=== PATIENT | female | born 1990 | race Caucasian/White ===

== ENCOUNTER 2018-08-04 16:22 | Emergency (ER) | payer SELFPAY ==
[~2018-08-04] VITALS: Ht 157.5 cm; Wt 50.0 kg
[2018-08-04 16:28] VITALS: BP 105/73
== END 2018-08-04 20:00 | disposition left against medical advice (07) ==
LOC: EMS 16:23
DX: R51 Headache (principal); Z53.21 Procedure and treatment not carried out due to patient leaving prior to being seen by health care provider

== ENCOUNTER 2020-01-10 08:44 | Emergency (ER) | payer OTHER ==
[~2020-01-10] VITALS: Ht 152.4 cm; Wt 47.7 kg
[2020-01-10] MEDS ORDERED: LORA-999 PO (08:50)
[2020-01-10 09:19] LABS: BASOPHILS % (AUTO) 0.4 % (0.0-2.0); EOSINOPHILS % (AUTO) 2.8 % (1.0-6.0); HEMATOCRIT 42.3 % (36-46); HEMOGLOBIN 14.4 g/dL (12.0-16.0); LYMPHOCYTES # (AUTO) 1.6 K/uL (1.0-4.8); LYMPHOCYTES % (AUTO) 18.5 % (22.0-44.0); MEAN CORPUSCULAR HEMOGLOBIN 30.5 pg (26.0-34.0); MEAN CORPUSCULAR VOLUME 90 fL (80-100); MONOCYTES # (AUTO) 0.5 K/uL (0.1-1.0); MONOCYTES % (AUTO) 6.3 % (2.0-9.0); NEUTROPHILS # (AUTO) 6.1 K/uL (1.8-7.7); PLATELET COUNT (AUTO) 193 K/uL (150-450); RED BLOOD CELL COUNT(AUTO) 4.72 MIL/uL (4.00-5.20); RED CELL DISTRIBUTION WIDTH 13.9 % (11.5-14.5)
[2020-01-10 09:27] LABS: ANION GAP 16 mmol/L (8-16); CALCIUM, TOTAL 9.3 mg/dL (8.8-10.5); CARBON DIOXIDE 20 mmol/L (22-29); CHLORIDE 97 mmol/L (98-107); CREATININE 0.83 mg/dL (0.60-1.30); GLOMERULAR FILTR. RATE CALC > 60 mL/min (>60); GLUCOSE,RANDOM 72 mg/dL (70-110); POTASSIUM 3.5 mmol/L (3.5-5.1); SODIUM SERUM 133 mmol/L (136-145); UREA NITROGEN, BLOOD 18 mg/dL (7-18)
[2020-01-10] MEDS ORDERED: LORazepam 1 MG TABLET PO ONE (09:30)
[2020-01-10 10:16] VITALS: BP 125/70
== END 2020-01-10 10:19 | disposition home or self-care (01) ==
LOC: EMS 08:46
DX: F41.9 Anxiety disorder, unspecified (principal)
CPT/HCPCS: 36415; 80048; 85025; 99283; G0480

== ENCOUNTER 2020-03-25 17:54 | Emergency (ER) | payer OTHER ==
[~2020-03-25] VITALS: Ht 157.5 cm; Wt 50.5 kg
[~2020-03-25 17:54] MED LIST: LORA-999 PO
[2020-03-25] MEDS ORDERED: QUET100T PO (18:06)
[2020-03-25 18:11] VITALS: BP 124/75
== END 2020-03-25 18:17 | disposition left against medical advice (07) ==
LOC: EMS 17:55
DX: M54.5 Low back pain (principal); Z53.21 Procedure and treatment not carried out due to patient leaving prior to being seen by health care provider

== ENCOUNTER 2020-05-03 20:43 | Emergency (ER) | payer OTHER ==
[~2020-05-03] VITALS: Ht 160 cm; Wt 52.3 kg
[~2020-05-03 20:43] MED LIST changes: +QUET100T PO
[2020-05-03] MEDS ORDERED: [UNRECOGNIZED DRUG - OTHER] PO (20:51)
[2020-05-03 21:52] LABS: BASOPHILS % (AUTO) 0.2 % (0.0-2.0); EOSINOPHILS % (AUTO) 5.1 % (1.0-6.0); HEMATOCRIT 39.2 % (36-46); HEMOGLOBIN 13.5 g/dL (12.0-16.0); LYMPHOCYTES # (AUTO) 2.9 K/uL (1.0-4.8); MEAN CORPUSCULAR HEMOGLOBIN 30.6 pg (26.0-34.0); MEAN CORPUSCULAR HGB CONC 34.5 G/dL (31.0-37.0); MEAN CORPUSCULAR VOLUME 89 fL (80-100); MONOCYTES # (AUTO) 0.7 K/uL (0.1-1.0); MONOCYTES % (AUTO) 8.3 % (2.0-9.0); NEUTROPHILS # (AUTO) 4.4 K/uL (1.8-7.7); NEUTROPHILS % (AUTO) 52.4 % (40.0-70.0); PLATELET COUNT (AUTO) 199 K/uL (150-450); RED BLOOD CELL COUNT(AUTO) 4.43 MIL/uL (4.00-5.20); RED CELL DISTRIBUTION WIDTH 13.5 % (11.5-14.5)
[2020-05-03 22:00] LABS: APPEARANCE,URINE CLOUDY (CLEAR); BILIRUBIN,URINE NEGATIVE (NEGATIVE); GLUCOSE, URINE (UA) NEGATIVE (NEGATIVE); KETONES,URINE NEGATIVE (NEGATIVE); LEUKOCYTE ESTERASE ,URINE SMALL (NEGATIVE); NITRATE,URINE NEGATIVE (NEGATIVE); OCCULT BLOOD,URINE NEGATIVE (NEGATIVE); PROTEIN,URINE NEGATIVE (NEGATIVE); UROBILINOGEN,URINE 0.2 mg/dL (<=1.0)
[2020-05-03 22:00] LABS: ANION GAP 1 mmol/L (8-16); CALCIUM, TOTAL 8.9 mg/dL (8.8-10.5); CARBON DIOXIDE 28 mmol/L (22-29); CHLORIDE 103 mmol/L (98-107); GLOMERULAR FILTR. RATE CALC > 60 mL/min (>60); GLUCOSE,RANDOM 96 mg/dL (70-110); POTASSIUM 3.7 mmol/L (3.5-5.1); SODIUM SERUM 132 mmol/L (136-145); UREA NITROGEN, BLOOD 12 mg/dL (7-18)
[2020-05-03 22:05] LABS: AMPHET/METH SCREEN,URINE NEGATIVE (NEGATIVE); BARBITURATE SCREEN, URINE NEGATIVE (NEGATIVE); BENZODIAZEPINES SCREEN,URINE NEGATIVE (NEGATIVE); CANNABINOID SCREEN,URINE NEGATIVE (NEGATIVE); COCAINE SCREEN,URINE NEGATIVE (NEGATIVE); METHADONE SCREEN, URINE NEGATIVE (NEGATIVE); OPIATE SCREEN,URINE NEGATIVE (NEGATIVE); PHENCYCLIDINE SCREEN,URINE NEGATIVE (NEGATIVE)
[2020-05-03 22:07] LABS: RBC,URINE 0-2 /HPF (0-2)
[2020-05-03 22:08] LABS: BACTERIA,URINE Moderate /HPF (None Seen); SQUAMOUS EPITHELIAL CELL,UR Many /LPF (None Seen)
[2020-05-03 22:11] LABS: ALANINE AMINOTRANSFERASE 14 U/L (12-78); ALBUMIN 3.9 g/dL (3.4-5.0); ALKALINE PHOSPHATASE 72 U/L (46-116); ASPARTATE AMINOTRANSFERASE 13 U/L (15-37); BILIRUBIN,TOTAL 0.4 mg/dL (0.1-1.0); HCG,QUANTITATIVE 1 mIU/mL (0-6); LIPASE 88 U/L (73-393); TOTAL PROTEIN, SERUM 7.7 g/dL (6.4-8.2)
[2020-05-04 01:00] VITALS: BP 118/72
== END 2020-05-03 23:45 | disposition home or self-care (01) ==
LOC: EMS 20:43
DX: K29.70 Gastritis, unspecified, without bleeding (principal); N39.0 Urinary tract infection, site not specified; F41.9 Anxiety disorder, unspecified; F31.9 Bipolar disorder, unspecified; Z90.710 Acquired absence of both cervix and uterus; Z88.0 Allergy status to penicillin
CPT/HCPCS: 76705; 87086

== ENCOUNTER 2020-07-20 19:03 | Emergency (ER) | payer OTHER ==
[~2020-07-20] VITALS: Ht 160 cm; Wt 52.3 kg
[~2020-07-20 19:03] MED LIST changes: +[UNRECOGNIZED DRUG - OTHER] PO
[2020-07-20] MEDS ORDERED: QUEtiapine FUMARATE 100 MG TABLET PO ONE (19:45)
[2020-07-20] MEDS ORDERED: SODIUM CHLORIDE 0.9% 1,000 ML IV ONE (19:45)
[2020-07-20 20:16] LABS: BASOPHILS % (AUTO) 0.4 % (0.0-2.0); EOSINOPHILS % (AUTO) 3.5 % (1.0-6.0); HEMATOCRIT 43.7 % (36-46); HEMOGLOBIN 14.4 g/dL (12.0-16.0); LYMPHOCYTES # (AUTO) 2.6 K/uL (1.0-4.8); LYMPHOCYTES % (AUTO) 26.3 % (22.0-44.0); MEAN CORPUSCULAR HEMOGLOBIN 30.2 pg (26.0-34.0); MEAN CORPUSCULAR HGB CONC 32.9 G/dL (31.0-37.0); MEAN CORPUSCULAR VOLUME 92 fL (80-100); MONOCYTES # (AUTO) 0.6 K/uL (0.1-1.0); NEUTROPHILS # (AUTO) 6.3 K/uL (1.8-7.7); NEUTROPHILS % (AUTO) 63.8 % (40.0-70.0); PLATELET COUNT (AUTO) 211 K/uL (150-450); RED BLOOD CELL COUNT(AUTO) 4.76 MIL/uL (4.00-5.20); RED CELL DISTRIBUTION WIDTH 13.2 % (11.5-14.5)
[2020-07-20 20:27] LABS: ANION GAP 11 mmol/L (8-16); CALCIUM, TOTAL 9.2 mg/dL (8.8-10.5); CARBON DIOXIDE 26 mmol/L (22-29); CHLORIDE 104 mmol/L (98-107); CREATININE 0.54 mg/dL (0.60-1.30); GLOMERULAR FILTR. RATE CALC > 60 mL/min (>60); GLUCOSE,RANDOM 123 mg/dL (70-110); POTASSIUM 3.3 mmol/L (3.5-5.1); SODIUM SERUM 141 mmol/L (136-145); UREA NITROGEN, BLOOD 9 mg/dL (7-18)
[2020-07-20 20:40] LABS: ALANINE AMINOTRANSFERASE 19 U/L (12-78); ALBUMIN 4.1 g/dL (3.4-5.0); ALKALINE PHOSPHATASE 50 U/L (46-116); ASPARTATE AMINOTRANSFERASE 12 U/L (15-37); BILIRUBIN,TOTAL 0.3 mg/dL (0.1-1.0); HCG,QUANTITATIVE < 1 mIU/mL (0-6); TOTAL PROTEIN, SERUM 7.9 g/dL (6.4-8.2)
[2020-07-20] MEDS ORDERED: POTASSIUM CHLORIDE 20 MEQ ER TABLET PO ONE (20:45)
[2020-07-20 21:00] VITALS: BP 115/70
== END 2020-07-20 21:20 | disposition home or self-care (01) ==
LOC: EMS 19:03
DX: F41.9 Anxiety disorder, unspecified (principal); R42 Dizziness and giddiness; F31.9 Bipolar disorder, unspecified; Z90.710 Acquired absence of both cervix and uterus; Z88.1 Allergy status to other antibiotic agents
CPT/HCPCS: 96360; 96361; 99283; 36415-L1; 36415-TC

== ENCOUNTER 2020-08-14 05:56 | Emergency (ER) | payer OTHER ==
[~2020-08-14] VITALS: Ht 157.5 cm; Wt 54.5 kg
[~2020-08-14 05:56] MED LIST changes: -LORA-999 PO; -[UNRECOGNIZED DRUG - OTHER] PO
[2020-08-14 05:58] VITALS: BP 97/61
[2020-08-14] MEDS ORDERED: QUET100T PO (06:03)
== END 2020-08-14 07:05 | disposition home or self-care (01) ==
LOC: EMS 05:59
DX: F41.9 Anxiety disorder, unspecified (principal); F31.9 Bipolar disorder, unspecified; Z76.0 Encounter for issue of repeat prescription; Z90.710 Acquired absence of both cervix and uterus
CPT/HCPCS: 99281; Z7502

== ENCOUNTER 2020-09-30 14:25 | Emergency (ER) | payer OTHER ==
[~2020-09-30] VITALS: Ht 160 cm; Wt 61.4 kg
[2020-09-30] MEDS ORDERED: QUET300T5 PO (14:37)
[2020-09-30] MEDS ORDERED: DIVA-80 PO (14:37)
[2020-09-30 15:43] VITALS: BP 103/67
== END 2020-09-30 16:20 | disposition home or self-care (01) ==
LOC: EMS 14:29
DX: Z76.0 Encounter for issue of repeat prescription (principal); F41.9 Anxiety disorder, unspecified; F31.9 Bipolar disorder, unspecified; Z88.0 Allergy status to penicillin; Z90.710 Acquired absence of both cervix and uterus
CPT/HCPCS: 99281; Z7502

== ENCOUNTER 2020-10-13 11:09 | Emergency (ER) | payer OTHER ==
[~2020-10-13] VITALS: Ht 160 cm; Wt 54.5 kg
[~2020-10-13 11:09] MED LIST changes: +DIVA-80 PO; -QUET100T PO; +QUET300T5 PO
[2020-10-13 11:10] VITALS: BP 113/74
== END 2020-10-13 12:45 | disposition home or self-care (01) ==
LOC: EMS 11:09
DX: F41.9 Anxiety disorder, unspecified (principal); Z76.0 Encounter for issue of repeat prescription; F31.9 Bipolar disorder, unspecified; Z90.710 Acquired absence of both cervix and uterus
CPT/HCPCS: 99281; Z7502

== ENCOUNTER 2021-03-27 11:33 | Emergency (ER) | payer OTHER ==
[~2021-03-27] VITALS: Ht 160 cm; Wt 59.1 kg
[2021-03-27 13:00] VITALS: BP 109/54
== END 2021-03-27 13:05 | disposition home or self-care (01) ==
LOC: EMS 11:33
DX: F31.9 Bipolar disorder, unspecified (principal); Z76.0 Encounter for issue of repeat prescription
CPT/HCPCS: 99281; Z7502

== ENCOUNTER 2021-10-04 14:33 | Emergency (ER) | payer OTHER ==
[~2021-10-04] VITALS: Ht 160 cm; Wt 59.1 kg
[2021-10-04] MEDS ORDERED: LORA-999 PO (14:40)
[2021-10-04] MEDS ORDERED: QUEtiapine FUMARATE 100 MG TABLET PO ONE ×2 (15:00→15:30)
[2021-10-04] MEDS ORDERED: QUEtiapine FUMARATE 300 MG ER TABLET PO ONE (15:00)
[2021-10-04] MEDS ORDERED: ONDANSETRON HCL 4 MG TABLET PO ONE (15:00)
[2021-10-04] MEDS ORDERED: ONDA-104 PO (15:29)
[2021-10-04] MEDS ORDERED: QUET300T2 PO (15:29)
[2021-10-04 15:44] VITALS: BP 105/78
== END 2021-10-04 15:50 | disposition home or self-care (01) ==
LOC: EMS 14:33
DX: R11.0 Nausea (principal); F41.9 Anxiety disorder, unspecified; F31.9 Bipolar disorder, unspecified; N80.9 Endometriosis, unspecified; Z90.710 Acquired absence of both cervix and uterus; Z98.890 Other specified postprocedural states; Z88.1 Allergy status to other antibiotic agents; Z76.0 Encounter for issue of repeat prescription
CPT/HCPCS: 99283; Q0162

== ENCOUNTER 2022-07-08 14:13 | Emergency (ER) | payer OTHER ==
[~2022-07-08] VITALS: Ht 160 cm; Wt 59.1 kg
[~2022-07-08 14:13] MED LIST changes: -DIVA-80 PO; +LORA-999 PO; +ONDA-104 PO; +QUET300T2 PO
[2022-07-08 14:24] VITALS: BP 120/77
[2022-07-08] MEDS ORDERED: PENI500T2 PO (14:35)
[2022-07-08] MEDS ORDERED: IBUP-1554 PO (14:35)
[2022-07-08] MEDS ORDERED: HYDR-4723 PO (14:35)
[2022-07-08] MEDS ORDERED: BACL10TA PO (14:35)
[2022-07-09] MEDS ORDERED: CLIN-26 PO (15:24)
== END 2022-07-08 14:47 | disposition home or self-care (01) ==
LOC: EMS 14:17
DX: S39.012A Strain of muscle, fascia and tendon of lower back, initial encounter (principal); K04.7 Periapical abscess without sinus; K08.89 Other specified disorders of teeth and supporting structures; F41.9 Anxiety disorder, unspecified; F31.9 Bipolar disorder, unspecified; Z90.710 Acquired absence of both cervix and uterus; Z98.890 Other specified postprocedural states; Z88.8 Allergy status to other drugs, medicaments and biological substances; X58.XXXA Exposure to other specified factors, initial encounter; Y93.89 Activity, other specified; Y92.89 Other specified places as the place of occurrence of the external cause; Y99.8 Other external cause status
CPT/HCPCS: 99283; Z7502

== ENCOUNTER 2022-07-09 13:53 | Emergency (ER) | payer OTHER ==
[~2022-07-09] VITALS: Ht 160 cm; Wt 59.1 kg
[~2022-07-09 13:53] MED LIST changes: +BACL10TA PO; +HYDR-4723 PO; +IBUP-1554 PO; +PENI500T2 PO
[2022-07-09] MEDS ORDERED: CLIN-26 PO (15:24)
[2022-07-09 15:49] VITALS: BP 117/76
== END 2022-07-09 15:55 | disposition home or self-care (01) ==
LOC: EMS 13:56
DX: K04.7 Periapical abscess without sinus (principal); F41.9 Anxiety disorder, unspecified; F31.9 Bipolar disorder, unspecified; N80.9 Endometriosis, unspecified; Z90.710 Acquired absence of both cervix and uterus; Z98.890 Other specified postprocedural states
CPT/HCPCS: 99281; Z7502

== ENCOUNTER 2022-07-22 19:35 | Emergency (ER) | payer OTHER ==
[~2022-07-22] VITALS: Ht 165.1 cm; Wt 60.0 kg
[~2022-07-22 19:35] MED LIST changes: +CLIN-26 PO
[2022-07-22 19:44] VITALS: BP 103/56
[2022-07-22] MEDS ORDERED: CLIN300C58 PO (21:01)
[2022-07-22] MEDS ORDERED: HYDR-4723 PO (21:01)
[2022-07-22] MEDS ORDERED: IBUP-1554 PO (21:01)
== END 2022-07-22 21:12 | disposition home or self-care (01) ==
LOC: EMS 19:37
DX: K04.7 Periapical abscess without sinus (principal); F41.9 Anxiety disorder, unspecified; F31.9 Bipolar disorder, unspecified; N80.9 Endometriosis, unspecified; Z90.710 Acquired absence of both cervix and uterus; Z90.89 Acquired absence of other organs; Z98.890 Other specified postprocedural states; Z88.8 Allergy status to other drugs, medicaments and biological substances
CPT/HCPCS: 99283; Z7502

== ENCOUNTER 2025-03-17 18:47 | Emergency (ER) | payer MEDICAID, OTHER ==
[~2025-03-17] VITALS: Ht 160 cm; Wt 53.2 kg
[~2025-03-17 18:47] MED LIST changes: +CLIN300C58 PO; +HYDR-4062 PO; -HYDR-4723 PO; -LORA-999 PO; +LORA0.5T20 PO
[2025-03-17 19:15] VITALS: BP 127/76; PULSE 81; RESP 18; TEMP 98.2; O2SAT 100
[2025-03-17 20:07] LABS: PLATELET COUNT (AUTO) 200 K/uL (150-450); RED BLOOD CELL COUNT(AUTO) 4.92 MIL/uL (4.00-5.20); RED CELL DISTRIBUTION WIDTH 13.6 % (11.5-14.5); WHITE BLOOD COUNT (AUTO) 10.0 K/uL (4.5-11.0)
[2025-03-17 20:13] LABS: CALCIUM, TOTAL 9.1 mg/dL (8.8-10.5); CREATININE 0.86 mg/dL (0.60-1.30); GLOMERULAR FILTR. RATE CALC > 60 mL/min (>60); GLUCOSE,RANDOM 94 mg/dL (70-110); SODIUM SERUM 135 mmol/L (136-145); UREA NITROGEN, BLOOD 11 mg/dL (7-18)
[2025-03-17 20:25] LABS: TROPONIN I-HIGH SENSITIVITY Less Than 4 ng/L (<51)
== END 2025-03-17 23:59 | disposition home or self-care (01) ==
LOC: EMS 18:50
DX: F41.9 Anxiety disorder, unspecified (principal); F31.9 Bipolar disorder, unspecified; Z90.710 Acquired absence of both cervix and uterus; Z88.0 Allergy status to penicillin; Z79.899 Other long term (current) drug therapy
CPT/HCPCS: 99284; 80048; 84484; 84703; 85025; 93005; G0480